=== PATIENT | female | born 1945 | race Caucasian/White ===

== ENCOUNTER 2018-11-04 20:06 | Emergency (ER) | payer MEDICARE ==
[~2018-11-04] VITALS: Ht 147.3 cm; Wt 60.2 kg
[~2018-11-04 20:06] MED LIST: LISI-338 PO; SIMV20TA3 PO
[2018-11-04] MEDS ORDERED: IV NORMAL SALINE 1,000ML 1,000 ML IV SCH (20:29)
[2018-11-04 20:47] LABS: BASO # 0.1 x10^3/uL (0.0-0.2); BASO % 1 % (0-3); EOS % 0 % (0-3); HEMATOCRIT 43.1 % (36.0-47.0); HEMOGLOBIN 14.4 g/dL (12.0-15.5); LYMPH # 1.1 x10^3/uL (1.0-4.8); LYMPH % 16 % (24-48); MEAN CORPUSCULAR HEMOGLOBIN 26 pg (25-35); MEAN CORPUSCULAR HGB CONC 33 g/dL (31-37); MEAN CORPUSCULAR VOLUME 77 fL (79-100); MONO # 1.4 x10^3/uL (0.0-1.1); MONO % 20 % (0-9); NEUT # 4.3 x10^3uL (1.8-7.7); NEUT % 63 % (31-73); PLATELET COUNT 58 x10^3/uL (140-400); RED BLOOD COUNT 5.61 x10^6/uL (3.50-5.40); RED CELL DISTRIBUTION WIDTH 15.8 % (11.5-14.5); WHITE BLOOD COUNT 6.8 x10^3/uL (4.0-11.0)
--- NOTE | 2018-11-04 20:48 | PHYS DOC ---
Past History Past Medical History: Hypertension Past Surgical History: No Surgical History Alcohol Use: None Drug Use: None Adult General Chief Complaint Chief Complaint: MULTIPLE COMPLAINTS HPI HPI Patient is a 73-year-old female who presents from [facility] with complaint of cough, fever and chest tightness for about the last week. Patient also indicates that she has a little bit of shortness of breath with exertion. She denies any actual chest pain. She indicates that nothing has been improving her symptoms. Patient states that she is not sure how high the fevers been but she believes that she has been running a fever. Review of Systems Review of Systems Constitutional: Positive fever and chills [] Eyes: Denies change in visual acuity, redness, or eye pain [] HENT: Positive nasal congestion [] Respiratory: Positive cough and shortness of breath [] Cardiovascular: No additional information not addressed in HPI [] GI: Denies abdominal pain, nausea, vomiting or diarrhea [] Neurologic: Denies headache, focal weakness or sensory changes [] All other systems were reviewed and found to be within normal limits, except as documented in this note. Current Medications Current Medications Current Medications Medications (Trade) Dose Ordered Sig/Judy Start Time Stop Time Status Last Admin Dose Admin Sodium Chloride 1,000 ml @ 1,000 mls/hr Q1H 11/04/18 20:29 11/04/18 21:28 11/04/18 20:34 1,000 MLS/HR Allergies Allergies Allergies Coded Allergies Type Severity Reaction Last Updated Verified Sulfa (Sulfonamide Antibiotics) Allergy Unknown 09/29/13 Yes Physical Exam Physical Exam Constitutional: Well developed, well nourished, no acute distress, non-toxic appearance. [] HENT: Normocephalic, atraumatic, bilateral external ears normal, oropharynx moist, no oral exudates, nose normal. [] Eyes: PERRLA, EOMI, conjunctiva normal, no discharge. [] Neck: Normal range of motion, no tenderness, supple, no stridor. [] Cardiovascular: Mildly tachycardic rate with regular rhythm[] Lungs & Thorax: Bilateral breath sounds clear to auscultation [] Abdomen: Bowel sounds normal, soft, no tenderness. [] Skin: Warm, dry, no erythema, no rash. [] Extremities: No tenderness, no cyanosis, no clubbing, ROM intact, no edema. [] Neurologic: Alert and oriented X 3, no focal deficits noted. [] Current Patient Data Vital Signs Vital Signs Date Time Temp Pulse Resp B/P (MAP) Pulse Ox O2 Delivery O2 Flow Rate FiO2 11/04/18 20:22 97.6 124 22 94 Room Air EKG EKG EKG demonstrates sinus tachycardia with rate of 102.[] Radiology/Procedures Radiology/Procedures [] Impressions: Two-view chest x-ray demonstrates no acute process. Course & Med Decision Making Course & Med Decision Making Pertinent Labs and Imaging studies reviewed. (See chart for details) [] Dragon Disclaimer Dragon Disclaimer This electronic medical record was generated, in whole or in part, using a voice recognition dictation system. Departure Departure: Impression: Primary Impression: Bronchitis Disposition: 01 HOME, SELF-CARE Condition: STABLE Referrals: DENIA AGUILAR (PCP) Patient Instructions: Acute Bronchitis Scripts Guaifenesin/Codeine Phosphate (CHERATUSSIN AC SYRUP) 118 Ml Liquid 5 ML PO PRN Q6HRS PRN for COUGH, #120 ML Prov: HARRISON HURLEY Jr. DO 11/04/18 Amoxicillin/Potassium Clav (AUGMENTIN 875-125 TABLET) 1 Each Tablet 1 TAB PO BID for infection, #20 TAB Prov: HARRISON HURLEY Jr. DO 11/04/18 HARRISON HURLEY Jr. DO Nov 04, 2018 20:47
--- NOTE | 2018-11-04 20:58 | EKG ---
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
[2018-11-04 21:03] LABS: ALBUMIN 3.6 g/dL (3.4-5.0); CALCIUM 8.9 mg/dL (8.5-10.1); GFR 54.5; POTASSIUM 4.1 mmol/L (3.5-5.1); TOTAL BILIRUBIN 0.6 mg/dL (0.2-1.0); TOTAL PROTEIN 7.1 g/dL (6.4-8.2)
[2018-11-04] MEDS ORDERED: cefTRIAXone SODIUM 1 GM VIAL ONE (21:36)
[2018-11-04] MEDS ORDERED: IV NORMAL SALINE 50ML 50 ML ONE (21:36)
[2018-11-04 21:47] LABS: % LYMPHS 14 % (24-48); % MONOS 16 % (0-10); % SEGS 70 % (35-66)
[2018-11-04 21:49] LABS: MICROCYTOSIS SLIGHT; PLT ESTIMATE DECREASED (ADEQUATE)
[2018-11-04] MEDS ORDERED: AMOX1TAB61 PO (21:50)
[2018-11-04] MEDS ORDERED: GUAI118L20 PO (21:50)
[2018-11-04 21:51] VITALS: BP 129/76
--- NOTE | 2018-11-05 08:07 | RAD ---
Chest, 2 views, 11/04/2018: HISTORY: Dyspnea, cough, congestion Comparison is made to a study from 09/13/2013. The heart is at the upper limits of normal in size. The pulmonary vascularity is normal. No pulmonary infiltrate is seen. There is no evidence of pleural fluid. IMPRESSION: 1. Borderline cardiomegaly. 2. No acute infiltrates. Electronically signed by: Victor M Zheng MD (11/05/2018 8:04 AM) [facility]
== END 2018-11-04 21:51 | disposition home or self-care (01) ==
LOC: ER 20:06
DX: J45.909 Unspecified asthma, uncomplicated (principal); I10 Essential (primary) hypertension; Z88.2 Allergy status to sulfonamides
CPT/HCPCS: 36415; 71046; 80053; 83880; 84484; 85007; 85025; 85379; 87040; 93005; 96374; 99285; J0696; J7030

== ENCOUNTER 2020-08-08 12:50 | Emergency (ER) | payer MEDICARE ==
[~2020-08-08] VITALS: Ht 147.3 cm; Wt 60.2 kg
[~2020-08-08 12:50] MED LIST changes: +AMOX1TAB61 PO; +GUAI118L20 PO; +SIMV20TA18 PO; -SIMV20TA3 PO
[2020-08-08] MEDS ORDERED: DEXAMETHASONE SOD PHOS 4 MG/ML VIAL. IVP ONE (13:00)
[2020-08-08] MEDS ORDERED: DEXAMETHASONE SOD PHOS 10 MG/ML VIAL. ONE (13:02)
[2020-08-08] MEDS ORDERED: ONDANSETRON PF 4 MG/2 ML VIAL. ONE (13:05)
--- NOTE | 2020-08-08 13:06 | PHYS DOC ---
Past History Past Medical History: Hypertension Additional Past Medical Histor: "Platelet issues" Past Surgical History: No Surgical History Smoking: Non-smoker Alcohol Use: None Drug Use: None General Adult EDM: Chief Complaint: WEAKNESS/GENERALIZED HPI: HPI: 75-year-old female presents with 1 week history of generalized weakness with associated nausea and vomiting, subjective fever/chills, and body aches. Mica ent reports she does have some shortness of air and cough. Reports was seen Thursday at urgent care and tested for COVID-19. Reports COVID-19 test currently pending. Denies known exposure to COVID-19. Denies any trauma. Denies leg swelling or calf tenderness. Review of Systems: Review of Systems: Constitutional: Reports subjective fever and chills and generalized malaise and body aches Eyes: Denies redness or eye pain HENT: Denies nasal congestion or sore throat Respiratory: Reports cough and shortness of breath Cardiovascular: Denies chest pain or palpitations GI: Denies abdominal pain; reports nausea and vomiting : Denies dysuria or hematuria Musculoskeletal: Denies back pain or joint pain Integument: Denies rash or skin lesions Neurologic: Denies headache, focal weakness or sensory changes Complete systems were reviewed and found to be within normal limits, except as documented in this note. Current Medications: Current Meds: Current Medications Medications (Trade) Dose Ordered Sig/Judy Start Time Stop Time Status Last Admin Dose Admin Dexamethasone Sodium Phosphate (Decadron) 10 mg STK-MED ONCE 08/08/20 13:02 08/08/20 13:02 DC Allergies: Allergies: Allergies Coded Allergies Type Severity Reaction Last Updated Verified Sulfa (Sulfonamide Antibiotics) Allergy Unknown 09/29/13 Yes Physical Exam: PE: Constitutional: Small stature, well nourished, no acute distress, non-toxic appearance HENT: Normocephalic, atraumatic Eyes: Conjunctiva normal, no discharge Neck: Normal range of motion, no tenderness, supple, no meningeal signs Lungs & Thorax: No respiratory distress, equal chest rise and fall Abdomen: Soft, no tenderness, no guarding/rebound tenderness/distention Skin: Warm, dry, no erythema, no rash Extremities: No tenderness, ROM intact, no edema Neurologic: Alert and oriented X 3, normal motor function, normal sensory function, no focal deficits noted Psychologic: Affect normal, judgment normal EKG: EKG: @1301 Sinus tachycardia at 103bpm, NO ST elevation, QRS 74ms, QT/QTc 334/439ms Radiology/Procedures: Radiology/Procedures: PROCEDURE: CT ANGIOGRAPHY CHEST EXAM: CT angiography of the chest with intravenous contrast. HISTORY: Shortness of breath. Weakness. TECHNIQUE: Computed tomographic images of the chest were obtained following the administration of intravenous contrast according to angiography protocol. Multiplanar reformatting was performed and three dimensional maximum intensity projection images were obtained. *One or more of the following individualized dose reduction techniques were utilized for this examination: 1. Automated exposure control. 2. Adjustment of the mA and/or kV according to patient size. 3. Use of iterative reconstruction technique. COMPARISON: None. FINDINGS: There is no evidence of pulmonary embolism. Evaluation for distal pulmonary emboli is limited due to respiratory motion. There is mild cardiomegaly. The aorta is normal in caliber. The left vertebral artery originates directly from the aortic arch, a normal arch variant. There are tiny nodules or cysts within the thyroid, likely benign based on size and multiplicity. There are prominent mediastinal and hilar lymph nodes. There is a tiny hiatal hernia. There is multifocal peripheral predominant interstitial infiltrate. There aren't few small areas of focal consolidation, predominantly within the anterior left upper lobe. There is no pneumothorax or pleural effusion. There is hepatic steatosis. There is a 1.4 cm hypodense lesion within the posterior right hepatic lobe. There is a 1.0 cm hypodense lesion within the left hepatic lobe. There is splenomegaly. There are splenic granulomas. There is heterogeneous attenuation of the spleen likely due to the phase of contrast administration. There is adrenal gland thickening without a discrete nodule. There are degenerative changes throughout the spine. There is no suspicious osseous lesion. IMPRESSION: 1. No convincing pulmonary embolism. Evaluation of the distal pulmonary arteries is limited due to respiratory motion. 2. Bilateral peripheral predominant multifocal infiltrate with small areas of partial consolidation, the appearance of which favors atypical pneumonia. Follow-up to confirm resolution and exclude a persistent underlying nodule. 3. Hypodense lesions within the spleen. In the absence of known malignancy, these may be cysts or hemangiomas. These are likely visible sonographically. 4. Splenomegaly. 5. Mild cardia megaly. 6. Mediastinal and hilar lymphadenopathy, likely reactive given the aforementioned multifocal pneumonia. 7. Tiny cysts or nodules within the thyroid, likely benign based on size and multiplicity. This can be better assessed with a thyroid sonogram if there is clinical concern. Electronically signed by: Comfort Sparks MD (08/08/2020 4:00 PM) [id number] Course & Med Decision Making: Course & Med Decision Making Pertinent Labs and Imaging studies reviewed. (See chart for details) Elderly patient presents with weakness and associated nausea and vomiting, subjective fever and chills, and body aches. Concern for COVID-19. Patient was recently tested for COVID-19 on Thursday with results pending. COVID [address] EKG stable. Labs obtained and posted to chart. Leukopenia/Neutropenia noted. Patient meeting SIRS criteria with heart rate and leukopenia. Lactic acid elevated. Presumed infection with COVID-19. Patient meeting criteria for severe sepsis. Empiric antibiotic initiated. IV fluid hydration provided. Patient also noted to have significantly low platelet count. Patient does report history of "platelet issues ". D-dimer elevated. CTA chest without signs of PE but noted signs of atypical ( viral) pneumonia. concerning for COVID. Patient requiring admission for further evaluation and treatment. Discussed case with Dr. Rivas (hospitalist) who requests transfer to higher level of care given thrombocytopenia and need for possible hematology consultation. Patient requiring transfer for admission for further evaluation and treatment. Discussed with Dr. Hamilton (hospitalist at [facility]) who is in agreement with transfer for admission. Discussed regarding COVID testing. Decision to hold testing at [place]. Dr. Hamilton reports he will test for COVID upon patient's arrival to [place]. Discussed findings and plan with patient, who acknowledges understanding and agreement. COVID-19 CRITERIA: The patient was evaluated during the global COVID-19 pandemic, and that diagnosis was suspected/considered upon their initial presentation. Their evaluation, treatment and testing was consistent with current guidelines for patients who present with complaints or symptoms that may be related to COVID-19. Zahra Disclaimer: Zahra Disclaimer: This electronic medical record was generated, in whole or in part, using a voice recognition dictation system. Departure Departure: Impression: Primary Impression: Severe sepsis Additional Impressions: Suspected 2019 novel coronavirus infection Thrombocytopenia Hypokalemia Disposition: 05 DC/TRF OTHER TYPE INSTITUTI ([facility]) Condition: GUARDED Referrals: DENIA AGUILAR (PCP) COVID-19 Assessment COVID-19 Patient Risks: Age 65 or older: Yes Sign of co-morbidity: Yes Exp to person + for COVID: No Exp to PUI: No Travel from affected area: No Lower respiratory symptoms: Yes Fever: Yes Other: Yes PPE Use: Full PPE with N95 mask or PAPR: Yes Critical Care Time Critical care time was 30 minutes which includes time at bedside, spent in discussion of patient's care with specialists and/or family members, with interpretation of laboratory and/or radiological studies and is exclusive of procedures. Sepsis Assessment Date and Time of Assessment Date: Aug 08, 2020 Time: 16:00 Fluid Challenge: Is the fluid challenge complet: No IBW Target Volume Used: No BMI > 30: No Vital Signs Vital Signs Vital Signs Date Time Temp Pulse Resp B/P (MAP) Pulse Ox O2 Delivery O2 Flow Rate FiO2 08/08/20 15:47 109 16 129/75 (93) 95 Room Air 08/08/20 13:05 97.9 Temperature Source: Oral Respirations Respiratory Effort: Normal Respiratory Pattern: Normal Cardiovascular Pulse Rhythm: Regular Heart: Nml rate, reg. rhythm Lung Sounds Breath Sounds: Diminished Capillary Refill Capillary Refill: Rt Hand < 3 seconds Peripheral Pulse Pulse Location: Radial Pulse Strength: Normal (2+) Pulse Assessment Method: Palpation Integumentary Skin: Warm, Dry, No Rashes Skin Moisture: Dry Skin Turgor: Normal Skin Color: warm, dry Fingernail Color: WNL NOMI GARNER DO Aug 08, 2020 13:06
[2020-08-08] MEDS ORDERED: ONDANSETRON PF 4 MG/2 ML VIAL. IVP ONE (13:15)
[2020-08-08 13:52] LABS: BASO % 1 % (0-3); EOS % 0 % (0-3); HEMATOCRIT 38.8 % (36.0-47.0); HEMOGLOBIN 12.6 g/dL (12.0-15.5); LYMPH # 0.5 x10^3/uL (1.0-4.8); LYMPH % 18 % (24-48); MEAN CORPUSCULAR HEMOGLOBIN 24 pg (25-35); MEAN CORPUSCULAR HGB CONC 32 g/dL (31-37); MEAN CORPUSCULAR VOLUME 73 fL (79-100); MONO # 1.1 x10^3/uL (0.0-1.1); MONO % 42 % (0-9); NEUT % 39 % (31-73); RED BLOOD COUNT 5.32 x10^6/uL (3.50-5.40); RED CELL DISTRIBUTION WIDTH 18.6 % (11.5-14.5); WHITE BLOOD COUNT 2.5 x10^3/uL (4.0-11.0)
[2020-08-08 14:13] LABS: HEMOGLOBIN ISTAT 13.3 gm/dL
[2020-08-08 14:16] LABS: POTASSIUM ISTAT 2.9 mmol/L (3.5-5.0)
[2020-08-08 14:17] LABS: INFLUENZA A PATIENT NEGATIVE (NEGATIVE); INFLUENZA B PATIENT NEGATIVE (NEGATIVE)
--- NOTE | 2020-08-08 14:20 | EKG ---
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
[2020-08-08 14:30] LABS: PLATELET COUNT 15 x10^3/uL (140-400)
[2020-08-08] MEDS ORDERED: POTASSIUM CHLORIDE 20 MEQ TABLET.ER. PO ONE (14:45)
[2020-08-08] MEDS ORDERED: IOHEXOL 350 MG/ML 100 ML VIAL. IV ONE (15:00)
[2020-08-08 15:02] LABS: BASO % 1 % (0-3); EOS % 0 % (0-3); HEMATOCRIT 36.4 % (36.0-47.0); HEMOGLOBIN 11.9 g/dL (12.0-15.5); LYMPH # 0.3 x10^3/uL (1.0-4.8); LYMPH % 15 % (24-48); MEAN CORPUSCULAR HEMOGLOBIN 24 pg (25-35); MEAN CORPUSCULAR HGB CONC 33 g/dL (31-37); MEAN CORPUSCULAR VOLUME 73 fL (79-100); MONO # 0.6 x10^3/uL (0.0-1.1); MONO % 30 % (0-9); NEUT # 1.1 x10^3uL (1.8-7.7); NEUT % 54 % (31-73); RED CELL DISTRIBUTION WIDTH 18.5 % (11.5-14.5)
[2020-08-08 15:04] LABS: ALBUMIN 3.6 g/dL (3.4-5.0); ALK PHOS 63 U/L (46-116); ALT (SGPT) 25 U/L (14-59); ANION GAP 11 (6-14); AST (SGOT) 44 U/L (15-37); BLOOD UREA NITROGEN 8 mg/dL (7-20); BUN/CREATININE RATIO 7 (6-20); CALCIUM 7.7 mg/dL (8.5-10.1); CHLORIDE 94 mmol/L (98-107); CREATININE 1.1 mg/dL (0.6-1.0); GFR 48.6; GLUCOSE 181 mg/dL (70-99); SODIUM 132 mmol/L (136-145); TOTAL BILIRUBIN 0.8 mg/dL (0.2-1.0); TOTAL PROTEIN 7.1 g/dL (6.4-8.2)
[2020-08-08 15:10] LABS: PLATELET COUNT 13 x10^3/uL (140-400)
[2020-08-08] MEDS ORDERED: PIP/TAZO PER PHARMACY MC PRN (15:15)
[2020-08-08] MEDS ORDERED: PIPERACILLIN/TAZOBACTAM 3.375 GM in IV NORMAL SALINE 50ML 50 ML IV ONE (15:30)
[2020-08-08] MEDS ORDERED: IV NORMAL SALINE 1,000ML 1,000 ML IV ONE ×2 (15:30)
[2020-08-08] MEDS ORDERED: PIPERACILLIN/TAZOBACTAM 3.375 GM VIAL IV ONE (15:31)
[2020-08-08] MEDS ORDERED: IV NORMAL SALINE 50ML 50 ML ONE (15:31)
[2020-08-08 15:51] LABS: POTASSIUM 2.7 mmol/L (3.5-5.1)
--- NOTE | 2020-08-08 16:02 | RAD ---
EXAM: CT angiography of the chest with intravenous contrast. HISTORY: Shortness of breath. Weakness. TECHNIQUE: Computed tomographic images of the chest were obtained following the administration of int ravenous contrast according to angiography protocol. Multiplanar reformatting was performed and three dimensional maximum intensity projection images were obtained. *One or more of the following individualized dose reduction techniques were utilized for this examina tion: 1. Automated exposure control. 2. Adjustment of the mA and/or kV according to patient size. 3. Use of iterative reconstruction technique. COMPARISON: None. FINDINGS: There is no evidence of pulmonary embolism. Evaluation for distal pulmonary emboli is limit ed due to respiratory motion. There is mild cardiomegaly. The aorta is normal in caliber. The left ve rtebral artery originates directly from the aortic arch, a normal arch variant. There are tiny nodule s or cysts within the thyroid, likely benign based on size and multiplicity. There are prominent medi astinal and hilar lymph nodes. There is a tiny hiatal hernia. There is multifocal peripheral predominant interstitial infiltrate. There aren't few small areas of f ocal consolidation, predominantly within the anterior left upper lobe. There is no pneumothorax or pl eural effusion. There is hepatic steatosis. There is a 1.4 cm hypodense lesion within the posterior r ight hepatic lobe. There is a 1.0 cm hypodense lesion within the left hepatic lobe. There is splenome doug. There are splenic granulomas. There is heterogeneous attenuation of the spleen likely due to th e phase of contrast administration. There is adrenal gland thickening without a discrete nodule. Ther e are degenerative changes throughout the spine. There is no suspicious osseous lesion. IMPRESSION: 1. No convincing pulmonary embolism. Evaluation of the distal pulmonary arteries is limited due to re spiratory motion. 2. Bilateral peripheral predominant multifocal infiltrate with small areas of partial consolidation, the appearance of which favors atypical pneumonia. Follow-up to confirm resolution and exclude a pers istent underlying nodule. 3. Hypodense lesions within the spleen. In the absence of known malignancy, these may be cysts or hem angiomas. These are likely visible sonographically. 4. Splenomegaly. 5. Mild cardia megaly. 6. Mediastinal and hilar lymphadenopathy, likely reactive given the aforementioned multifocal pneumon ia. 7. Tiny cysts or nodules within the thyroid, likely benign based on size and multiplicity. This can b e better assessed with a thyroid sonogram if there is clinical concern. Electronically signed by: Comfort Sparks MD (08/08/2020 4:00 PM) [id number]
[2020-08-08 16:11] LABS: BACTERIA,URINE 0 /HPF (0-FEW); BILIRUBIN,URINE NEG (NEG); CLARITY,URINE CLEAR; COLOR,URINE YELLOW; GLUCOSE,URINE NEG (NEG); NITRITE,URINE NEG (NEG); RBC,URINE 0 /HPF (0-2); UROBILINOGEN,URINE 0.2 mg/dL (0.2 mg/dL); WBC,URINE 0 /HPF (0-4)
[2020-08-08] MEDS ORDERED: AZITHROMYCIN 500 MG in IV NORMAL SALINE 250ML 250 ML IV ONE (16:15)
[2020-08-08] MEDS ORDERED: AZITHROMYCIN 500 MG VIAL. IV ONE (16:28)
[2020-08-08] MEDS ORDERED: IV NORMAL SALINE 250ML 250 ML ONE (16:28)
[2020-08-08 17:29] LABS: % LYMPHS 22 % (24-48); % MONOS 46 % (0-10); % SEGS 32 % (35-66)
[2020-08-08 17:30] LABS: PLATELET CLUMP PRESENT; PLT ESTIMATE DECREASED (ADEQUATE)
[2020-08-08 17:36] VITALS: BP 136/79
== END 2020-08-08 17:43 | disposition short-term general hospital (02) ==
LOC: ER 12:50
DX: A41.9 Sepsis, unspecified organism (principal); I10 Essential (primary) hypertension; D69.6 Thrombocytopenia, unspecified; E87.6 Hypokalemia; Z20.822 Contact with and (suspected) exposure to COVID-19; Z88.2 Allergy status to sulfonamides
CPT/HCPCS: 36415; 71275; 80047; 80053; 81001; 82553; 83605; 83735; 83880; 84484; 85007; 85025; 85379; 85610; 85730; 87040; 87804; 93005; 96365; 96367; 96375; 99291; J0456; J1100; J2405; J2543; J7030; J7050; Q9967

== ENCOUNTER 2020-09-07 17:52 | Emergency (ER) | payer MEDICARE ==
[~2020-09-07] VITALS: Ht 167.6 cm; Wt 56.0 kg
[~2020-09-07 17:52] MED LIST changes: -LISI-338 PO; +LISI-517 PO
--- NOTE | 2020-09-07 18:36 | PHYS DOC ---
Past History Past Medical History: COPD, Diabetes Additional Past Medical Histor: "Platelet issues" Past Surgical History: Smoking: Non-smoker Alcohol Use: None Drug Use: None Adult General Chief Complaint Chief Complaint: ABNORMAL LABS HPI HPI Patient is a 75-year-old female with a past medical history of insulin-dependent diabetes and COPD with a recent history of low platelets who presents with a chief complaint of abnormal lab. States he had her labs drawn on a well visit and was called at her snf/assisted living and directed to the emergency department due to a lab finding of low platelets. States that she cannot remember what the value was. Denies any recent traumas, illnesses, fevers, headaches, Covid/flu symptoms, chest pain, shortness of breath, abdominal pain, nausea, vomiting, dysuria. Denies any hematemesis/hemoptysis, melena or hematochezia. States she has been otherwise eating and drinking normally for her. States she is making urine and stool normally for her. Denies any recent weight gain or weight loss. States she otherwise feels well. Review of Systems Review of Systems Review of systems otherwise unremarkable except noted in HPI Allergies Allergies Allergies Coded Allergies Type Severity Reaction Last Updated Verified Sulfa (Sulfonamide Antibiotics) Allergy Unknown 09/29/13 Yes Physical Exam Physical Exam Constitutional: Well developed, well nourished, no acute distress, non-toxic appearance. [] HENT: Normocephalic, atraumatic, bilateral external ears normal, oropharynx moist, no oral exudates, nose normal. [] Eyes: conjunctiva normal, no discharge. [] Neck: Normal range of motion, Cardiovascular:Heart rate regular rhythm, no murmur [] Lungs & Thorax: Bilateral breath sounds clear to auscultation [] Abdomen: soft, no tenderness, no masses, no pulsatile masses. [] Skin: Warm, dry, no erythema, no rash, appropriate capillary refill. [] Back: No tenderness, [] Extremities: No tenderness, no cyanosis, no clubbing, ROM intact, no edema. [] Neurologic: Alert and oriented X 3, normal motor function, normal sensory fun ction, no focal deficits noted. [] Psychologic: Affect normal, judgement normal, mood normal. [] Current Patient Data Vital Signs Vital Signs Date Time Temp Pulse Resp B/P (MAP) Pulse Ox O2 Delivery O2 Flow Rate FiO2 09/07/20 17:55 97.8 98 16 134/59 (84) 100 Room Air Lab Results Laboratory Tests Test 09/07/20 18:14 09/07/20 18:30 Prothrombin Time 10.2 SEC (9.4-11.4) Prothromb Time International Ratio 1.0 (0.9-1.1) Activated Partial Thromboplast Time 25 SEC (23-33) Sodium Level 135 mmol/L (136-145) Potassium Level 3.7 mmol/L (3.5-5.1) Chloride Level 99 mmol/L (98-107) Carbon Dioxide Level 31 mmol/L (21-32) Anion Gap 5 (6-14) Blood Urea Nitrogen 9 mg/dL (7-20) Creatinine 0.8 mg/dL (0.6-1.0) Estimated GFR (Cockcroft-Gault) 70.1 BUN/Creatinine Ratio 11 (6-20) Glucose Level 258 mg/dL (70-99) Calcium Level 8.3 mg/dL (8.5-10.1) Total Bilirubin 0.6 mg/dL (0.2-1.0) Aspartate Amino Transf (AST/SGOT) 27 U/L (15-37) Alanine Aminotransferase (ALT/SGPT) 34 U/L (14-59) Alkaline Phosphatase 91 U/L (46-116) Total Protein 6.3 g/dL (6.4-8.2) Albumin 2.6 g/dL (3.4-5.0) Albumin/Globulin Ratio 0.7 (1.0-1.7) White Blood Count 3.9 x10^3/uL (4.0-11.0) Red Blood Count 4.16 x10^6/uL (3.50-5.40) Hemoglobin 10.2 g/dL (12.0-15.5) Hematocrit 32.0 % (36.0-47.0) Mean Corpuscular Volume 77 fL (79-100) Mean Corpuscular Hemoglobin 25 pg (25-35) Mean Corpuscular Hemoglobin Concent 32 g/dL (31-37) Red Cell Distribution Width 23.0 % (11.5-14.5) Platelet Count 40 x10^3/uL (140-400) Neutrophils (%) (Auto) 54 % (31-73) Lymphocytes (%) (Auto) 15 % (24-48) Monocytes (%) (Auto) 30 % (0-9) Eosinophils (%) (Auto) 0 % (0-3) Basophils (%) (Auto) 1 % (0-3) Neutrophils # (Auto) 2.1 x10^3uL (1.8-7.7) Lymphocytes # (Auto) 0.6 x10^3/uL (1.0-4.8) Monocytes # (Auto) 1.2 x10^3/uL (0.0-1.1) Eosinophils # (Auto) 0.0 x10^3/uL (0.0-0.7) Basophils # (Auto) 0.0 x10^3/uL (0.0-0.2) Platelet Estimate Decreased (ADEQUATE) Hypochromasia Slight Anisocytosis Mod EKG EKG [] Radiology/Procedures Radiology/Procedures [] Heart Score Risk Factors: Risk Factors: DM, Current or recent (<one month) smoker, HTN, HLP, family history of CAD, obesity. Risk Scores: Risk Factors: DM, Current or recent (<one month) smoker, HTN, HLP, family history of CAD, obesity. Course & Med Decision Making Course & Med Decision Making Patient is a 75-year-old female who presents with a chief complaint of abnormal lab/with low platelets on recent primary care visit who was directed to the emergency department Vital signs not concerning. Physical exam noted above. Patient currently asymptomatic, stating she feels otherwise well. Denies any bleeding diathesis. Laboratory analysis notable for mild pancytopenia. Patient's vital signs however normal, patient asymptomatic and no history of bleeding diathesis. 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 Discussed all this with patient who verbalized understanding and agreed with plan of discharge. Gave strict return precautions to the ED. Dragon Disclaimer Dragon Disclaimer This electronic medical record was generated, in whole or in part, using a voice recognition dictation system. Departure Departure: Disposition: 01 DC HOME SELF CARE/HOMELESS Condition: GOOD Referrals: DENIA AGUILAR (PCP) Patient Instructions: Anemia, Nonspecific-Brief, Hemolytic Anemia, Leukocytosis, Thrombocytopenia, [id number] Additional Instructions: Please read all the attached information to understand her diagnosis. Please continue to eat and drink normally. Please be sure to eat plenty of fruits and vegetables and take your One-A-Day vitamin. Please call your primary care physician first thing Thursday morning to discuss these diagnoses and set up a follow-up appointment for labs as soon as you can. Please come back to the emergency department immediately with new or concerning symptoms as discussed. ALAINA TAVAREZ MD Sep 07, 2020 18:36
[2020-09-07 19:06] LABS: BASO % 1 % (0-3); EOS % 0 % (0-3); HEMOGLOBIN 10.2 g/dL (12.0-15.5); LYMPH # 0.6 x10^3/uL (1.0-4.8); LYMPH % 15 % (24-48); MEAN CORPUSCULAR HEMOGLOBIN 25 pg (25-35); MEAN CORPUSCULAR HGB CONC 32 g/dL (31-37); MEAN CORPUSCULAR VOLUME 77 fL (79-100); MONO # 1.2 x10^3/uL (0.0-1.1); MONO % 30 % (0-9); NEUT # 2.1 x10^3uL (1.8-7.7); NEUT % 54 % (31-73); RED BLOOD COUNT 4.16 x10^6/uL (3.50-5.40); WHITE BLOOD COUNT 3.9 x10^3/uL (4.0-11.0)
[2020-09-07 19:16] LABS: CALCIUM 8.3 mg/dL (8.5-10.1); CREATININE 0.8 mg/dL (0.6-1.0); GFR 70.1; POTASSIUM 3.7 mmol/L (3.5-5.1)
[2020-09-07 19:23] LABS: ALBUMIN 2.6 g/dL (3.4-5.0); ALBUMIN/GLOBULIN RATIO 0.7 (1.0-1.7); TOTAL BILIRUBIN 0.6 mg/dL (0.2-1.0); TOTAL PROTEIN 6.3 g/dL (6.4-8.2)
[2020-09-07 20:01] LABS: ANISOCYTOSIS MOD; PLT ESTIMATE DECREASED (ADEQUATE)
[2020-09-07 20:02] LABS: HYPOCHROMIA SLIGHT
[2020-09-07 20:06] LABS: PLATELET COUNT 40 x10^3/uL (140-400)
[2020-09-07 21:02] VITALS: BP 142/57
== END 2020-09-07 21:30 | disposition home or self-care (01) ==
LOC: ER 17:52
DX: R79.9 Abnormal finding of blood chemistry, unspecified (principal); E11.9 Type 2 diabetes mellitus without complications; J44.9 Chronic obstructive pulmonary disease, unspecified; Z88.2 Allergy status to sulfonamides
CPT/HCPCS: 36415; 80053; 85025; 85610; 85730; 99283

== ENCOUNTER 2020-09-19 23:20 | Emergency (ER) | payer MEDICARE ==
[~2020-09-19] VITALS: Ht 167.6 cm; Wt 56.0 kg
--- NOTE | 2020-09-19 23:33 | PHYS DOC ---
Past History Past Medical History: COPD, Diabetes, Kidney Stones Additional Past Medical Histor: "Platelet issues" Past Surgical History: Smoking: Non-smoker Alcohol Use: None Drug Use: None General Adult EDM: Chief Complaint: ABDOMINAL PAIN HPI: HPI: ".. I been hurting.. really bad.. here on Rt... I woke up with it about a hour ago...".. " I feels like when I had a kidney stone.. " Patient is a 75 year old female who presents with above hx and complaints of abdomen pain. Pain awaken her from sleep approximate hour ago. Patient is more on right flank and right mid abdomen. There is some radiation to right lower abdomen. Patient does have history of previous renal stones. Recently was [facility] for post Covid syndrome. Patient's primary is [facility] in care home and [facility] out pt. care. . Pt. history of acute respiratory failure-hypoxia, diabetes, COPD peripheral neuropathy, Covid 19 diagnosed on Aug.27. Patient has dysphagia oral phase, thrombocytopenia, essential hypertension, renal stone and weakness. No recent travel. No recent severe ill contacts other than at care home. Patient denies any trauma. Review of Systems: Review of Systems: Constitutional: Denies fever or chills Eyes: Denies change in visual acuity HENT: Denies nasal congestion or sore throat Respiratory: Complaints of post Covid cough and shortness of breath Cardiovascular: Denies chest pain or edema GI: Complains of abdominal pain,. Denies nausea, vomiting, bloody stools or diarrhea. Complains of constipation : Denies dysuria or joint pain Integument: Denies rash Neurologic: Denies headache, focal weakness or sensory changes Endocrine: Denies polyuria or polydipsia Lymphatic: Denies swollen glands Psychiatric: Denies depression or anxiety Family History: Family History: Noncontributory Current Medications: Current Meds: See nursing for home meds Allergies: Allergies: Allergies Coded Allergies Type Severity Reaction Last Updated Verified Sulfa (Sulfonamide Antibiotics) Allergy Unknown 09/29/13 Yes Physical Exam: PE: Constitutional: Moderate acute distress, non-toxic appearance. [] HENT: Normocephalic, atraumatic, bilateral external ears normal, oropharynx moist, no oral exudates, nose normal. [] Eyes: PERRLA, EOMI, conjunctiva normal, no discharge. Glasses Neck: Normal range of motion, no tenderness, supple, no stridor. [] Cardiovascular:Heart rate regular rhythm, no murmur [] Lungs & Thorax: Bilateral breath sounds equal apex basilar crackles particularly on right and scattered wheezes on auscultation [] Abdomen: Bowel sounds normal, soft, right upper quadrant tenderness, no masses, no pulsatile masses. [] Distended Skin: Warm, dry, no erythema, no rash. [] Back: No tenderness, no CVA tenderness. [] Extremities: No tenderness, no cyanosis, no clubbing, ROM intact, no edema. Arthritic changes Neurologic: Alert and oriented X 3, normal motor function, normal sensory function, no focal deficits noted. [] Psychologic: Affect anxious, judgement normal, mood normal. [] EKG: EKG: My interpretation of EKG shows a sinus tachycardia 101 beats. No findings of acute STEMI with contralateral changes. [] Radiology/Procedures: Radiology/Procedures: [][place] [address] IMAGING REPORT Signed PATIENT: JEROME VALLADARES AACCOUNT: [id number] : 1945 LOCATION: ER AGE: 75 SEX: F EXAM STATUS: REG ER ORD. PHYSICIAN: JUVENAL SAMUEL MD REASON: Right sided abdomen pain PROCEDURE: ACUTE ABDOMEN SERIES EXAM: 2 VIEW ABDOMEN WITH ONE VIEW CHEST. HISTORY: Right abdominal pain. COMPARISON: 11/04/2018. FINDINGS: A frontal view of the chest and supine/upright views of the abdomen are obtained. There is a mild airspace infiltrate in the right midlung and base. Hyperinflation is consistent with chronic obstructive pulmonary disease. A calcified granuloma is noted in the left apex. There is no pneumothorax or pleural effusion. The heart is mildly enlarged. Prominence of the right peritracheal stripe is stable chronically. There is no pneumoperitoneum. There are no distended small bowel loops or significant air-fluid levels. There is gas distally. There is stool throughout the right colon. IMPRESSION: 1. Mild infiltrates in the right midlung and base suggest atypical pneumonia. 2. Mild cardiomegaly. Correlate for chronic obstructive pulmonary disease. 3. Correlate for mild constipation. No evidence of obstruction. Electronically signed by: Jasiel Monique MD (09/20/2020 12:09 AM) [facility] DICTATED AND SIGNED BY: COURTNEY MONIQUE MD DATE: 09/20/20 0007 CC: JUVENAL SAMUEL MD; DENIA AGUILAR ~MTH0 0 Heart Score: HEART Score for Chest Pain: HEART Score for Chest Pain Response (Comments) Value History Moderately Suspicious 1 ECG Nonspecific Repolarizatio 1 Age > 65 2 Risk Factors 1 or 2 Risk Factors 1 Troponin < Normal Limit 0 Total 5 Risk Factors: Risk Factors: DM, Current or recent (<one month) smoker, HTN, HLP, family history of CAD, obesity. Risk Scores: Score 0 - 3: 2.5% MACE over next 6 weeks - Discharge Home Score 4 - 6: 20.3% MACE over next 6 weeks - Admit for Clinical Observation Score 7 - 10: 72.7% MACE over next 6 weeks - Early Invasive Strategies Course & Med Decision Making: Course & Med Decision Making Pertinent Labs and Imaging studies reviewed. (See chart for details) Discussed presentation, testing and treatment plan with Dr. Ulloa transfer doctor certified personal trainer, at [facility]. Pt. accepted to Dr. Figueroa . Impression: 1. Abdomen Pain-Rt. Renal Stone with Marked Hydronephrosis ( 6mm stone) 2. Constipation 3. Hx. Covid 08/27/2020-with respiratory failure 4. History of COPD 5. History of anemia hemoglobin 9.8, microcytic 732 and hypochromic 23 indices and thrombocytopenia of 56 6. RML viral pneumonia- (resolving from prior CT on file) 7. Constipation [] Dragon Disclaimer: Dragon Disclaimer: This electronic medical record was generated, in whole or in part, using a voice recognition dictation system. Departure Departure: Referrals: DENIA AGUILAR (PCP) Zahra Disclaimer This chart was dictated in whole or in part using Voice Recognition software in a busy, high-work load, and often noisy Emergency Department environment. It may contain unintended and wholly unrecognized errors or omissions. JUVENAL SAMUEL MD Sep 19, 2020 23:33
[2020-09-19] MEDS ORDERED: IV RINGERS SOLUTION,LACTATED 1,000 ML IV SCH (23:45)
[2020-09-19 23:49] LABS: BASO % 1 % (0-3); EOS % 1 % (0-3); HEMATOCRIT 31.5 % (36.0-47.0); HEMOGLOBIN 9.8 g/dL (12.0-15.5); LYMPH # 1.1 x10^3/uL (1.0-4.8); LYMPH % 30 % (24-48); MEAN CORPUSCULAR HEMOGLOBIN 23 pg (25-35); MEAN CORPUSCULAR HGB CONC 31 g/dL (31-37); MEAN CORPUSCULAR VOLUME 73 fL (79-100); MONO % 26 % (0-9); NEUT # 1.6 x10^3uL (1.8-7.7); NEUT % 43 % (31-73); PLATELET COUNT 56 x10^3/uL (140-400); RED BLOOD COUNT 4.32 x10^6/uL (3.50-5.40); RED CELL DISTRIBUTION WIDTH 21.8 % (11.5-14.5); WHITE BLOOD COUNT 3.8 x10^3/uL (4.0-11.0)
[2020-09-19] MEDS ORDERED: ONDANSETRON PF 4 MG/2 ML VIAL. IVP ONE (23:55)
[2020-09-19] MEDS ORDERED: FAMOTIDINE 20 MG/2 ML VIAL IVP ONE (23:55)
[2020-09-19] MEDS ORDERED: KETOROLAC 30 MG/ML VIAL. IVP ONE (23:55)
[2020-09-19 23:56] LABS: BILIRUBIN,URINE NEG (NEG); CLARITY,URINE CLEAR; COLOR,URINE YELLOW; GLUCOSE,URINE NEG (NEG); NITRITE,URINE NEG (NEG); UROBILINOGEN,URINE 0.2 mg/dL (0.2 mg/dL)
[2020-09-19 23:57] LABS: BACTERIA,URINE FEW /HPF (0-FEW); SQUAMOUS EPITHELIAL CELL,UR FEW /LPF
[2020-09-20] LABS: ANION GAP 13 (6-14); BLOOD UREA NITROGEN 4 mg/dL (7-20); CALCIUM 8.5 mg/dL (8.5-10.1); CARBON DIOXIDE 26 mmol/L (21-32); CHLORIDE 106 mmol/L (98-107); CREATININE 0.6 mg/dL (0.6-1.0); GFR 97.7; GLUCOSE 109 mg/dL (70-99); POTASSIUM 3.2 mmol/L (3.5-5.1); SODIUM 145 mmol/L (136-145)
[2020-09-20 00:06] LABS: ALBUMIN 3.1 g/dL (3.4-5.0); ALK PHOS 86 U/L (46-116); ALT (SGPT) 26 U/L (14-59); AMYLASE 74 U/L (25-115); AST (SGOT) 23 U/L (15-37); DIRECT BILIRUBIN 0.1 mg/dL (0.0-0.2); LIPASE 322 U/L (73-393); TOTAL BILIRUBIN 0.6 mg/dL (0.2-1.0); TOTAL PROTEIN 6.2 g/dL (6.4-8.2)
--- NOTE | 2020-09-20 00:12 | RAD ---
EXAM: 2 VIEW ABDOMEN WITH ONE VIEW CHEST. HISTORY: Right abdominal pain. COMPARISON: 11/04/2018. FINDINGS: A frontal view of the chest and supine/upright views of the abdomen are obtained. There is a mild airspace infiltrate in the right midlung and base. Hyperinflation is consistent with chronic obstructive pulmonary disease. A calcified granuloma is noted in the left apex. There is no p neumothorax or pleural effusion. The heart is mildly enlarged. Prominence of the right peritracheal s tripe is stable chronically. There is no pneumoperitoneum. There are no distended small bowel loops or significant air-fluid level s. There is gas distally. There is stool throughout the right colon. IMPRESSION: 1. Mild infiltrates in the right midlung and base suggest atypical pneumonia. 2. Mild cardiomegaly. Correlate for chronic obstructive pulmonary disease. 3. Correlate for mild constipation. No evidence of obstruction. Electronically signed by: Jasiel Monique MD (09/20/2020 12:09 AM) [facility]
[2020-09-20 00:23] LABS: ANISOCYTOSIS MOD; HYPOCHROMIA SLIGHT; MICROCYTOSIS SLIGHT; PLT ESTIMATE DECREASED (ADEQUATE)
--- NOTE | 2020-09-20 00:56 | EKG ---
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
[2020-09-20 02:52] VITALS: BP 120/68
[2020-09-20] MEDS ORDERED: TAMSULOSIN 0.4 MG CAP.ER.24H. PO ONE (02:53)
--- NOTE | 2020-09-20 05:24 | RAD ---
EXAM: CT ABDOMEN/PELVIS WITHOUT CONTRAST. HISTORY: Right abdominal pain. Recent COVID-19. TECHNIQUE: Computed tomography of the abdomen and pelvis was performed without intravenous contrast. One or more of the following individualized dose reduction techniques were utilized for this examinat ion: 1. Automated exposure control. 2. Adjustment of the mA and/or kV according to patient size. 3. Use of iterative reconstruction technique. COMPARISON: 08/08/2020. FINDINGS: Lung windows through the visualized portions of the bases reveal interstitial and groundgla ss opacities within both lung bases. There is a small hiatal hernia. Bone windows reveal no suspiciou s lesions. A 12 mm cyst in the right hepatic lobe is stable. There are calcified granulomas in the spleen. The g allbladder, pancreas and adrenal glands are unremarkable without contrast. There are no pathologicall y enlarged lymph nodes. The appendix is not inflamed. There is no small bowel obstruction. Moderate umbilical and supraumbili ginette hernias contain only fat. A right distal ureteral calculus measures 6 x 5 mm. There is moderate right hydronephrosis. Another r ight lower pole renal calculus measures 2 mm. There are no suspicious renal lesions without contrast. There is mild bladder wall thickening. IMPRESSION: 1. 6 x 5 mm right distal ureteral calculus with moderate right hydronephrosis. 2. 2 mm right renal calculus. 3. Nonfocal bladder wall thickening suggests chronic outlet obstruction or inflammation. Correlate wi urinalysis. 4. Moderate umbilical and supraumbilical hernias containing only fat. Small hiatal hernia. 5. Residual bibasilar infiltrates consistent with recent atypical pneumonia. Electronically signed by: Jasiel Monique MD (09/20/2020 5:22 AM) [facility]
== END 2020-09-20 03:20 | disposition short-term general hospital (02) ==
LOC: ER 23:20
DX: N13.2 Hydronephrosis with renal and ureteral calculous obstruction (principal); K59.00 Constipation, unspecified; D69.6 Thrombocytopenia, unspecified; J44.9 Chronic obstructive pulmonary disease, unspecified; R10.31 Right lower quadrant pain; R06.02 Shortness of breath; R05 Cough; D64.9 Anemia, unspecified; E11.9 Type 2 diabetes mellitus without complications; Z98.890 Other specified postprocedural states
CPT/HCPCS: 36415; 74022; 74176; 80048; 80076; 81001; 82150; 82550; 83690; 84484; 85025; 85610; 85730; 87086; 93005; 96361; 96374; 96375; 99285; J1885; J2405; J3490; J7120

== ENCOUNTER → 2021-07-03 | Outpatient (CLI) | payer MEDICARE ==
[~2021-07-03] MED LIST changes: -LISI-517 PO; +LISI5TAB15 PO
[2021-07-03 15:21] LABS: ALBUMIN 3.8 g/dL (3.4-5.0); ALBUMIN/GLOBULIN RATIO 1.2 (1.0-1.7); CALCIUM 8.9 mg/dL (8.5-10.1); CREATININE 0.9 mg/dL (0.6-1.0); POTASSIUM 3.9 mmol/L (3.5-5.1); TOTAL BILIRUBIN 0.4 mg/dL (0.2-1.0); TOTAL PROTEIN 7.1 g/dL (6.4-8.2)
[2021-07-03 15:34] LABS: BASO % 1 % (0-3); EOS # 0.1 x10^3/uL (0.0-0.7); EOS % 1 % (0-3); HEMATOCRIT 45.6 % (36.0-47.0); HEMOGLOBIN 14.9 g/dL (12.0-15.5); LYMPH # 1.4 x10^3/uL (1.0-4.8); LYMPH % 19 % (24-48); MEAN CORPUSCULAR HEMOGLOBIN 26 pg (25-35); MEAN CORPUSCULAR HGB CONC 33 g/dL (31-37); MEAN CORPUSCULAR VOLUME 80 fL (79-100); MONO # 1.4 x10^3/uL (0.0-1.1); MONO % 19 % (0-9); NEUT # 4.4 x10^3uL (1.8-7.7); NEUT % 60 % (31-73); PLATELET COUNT 67 x10^3/uL (140-400); RED BLOOD COUNT 5.71 x10^6/uL (3.50-5.40); WHITE BLOOD COUNT 7.3 x10^3/uL (4.0-11.0)
[2021-07-03 16:22] LABS: ANISOCYTOSIS MOD; HYPOCHROMIA SLIGHT; PLT ESTIMATE DECREASED (ADEQUATE)
[2021-07-03 16:23] LABS: MICROCYTOSIS MOD
[2021-07-04 03:11] LABS: HEMOGLOBIN A1C 6.8 % (4.8-5.6)
== END ==
LOC: LAB 14:16
PROVIDERS: ATTEND Physician Assistant Medical
DX: E11.9 Type 2 diabetes mellitus without complications (principal)
CPT/HCPCS: 36415; 80053; 83036; 85025